=== PATIENT | female | born 1985 | race Caucasian/White ===

== ENCOUNTER 2017-01-17 22:51 | Emergency (ER) | payer OTHER ==
[~2017-01-17] VITALS: Ht 162.6 cm; Wt 81.7 kg
[~2017-01-17 22:51] MED LIST: TUMS200 MG PO; ZANTAC150 MG PO
[2017-01-17] MEDS ORDERED: XANAX2 MG PO (23:06)
== END 2017-01-18 00:15 | disposition home or self-care (01) ==
LOC: ED 22:51
DX: H01.006 Unspecified blepharitis left eye, unspecified eyelid (principal); H01.003 Unspecified blepharitis right eye, unspecified eyelid; F17.200 Nicotine dependence, unspecified, uncomplicated; Z79.899 Other long term (current) drug therapy
CPT/HCPCS: 99282